=== PATIENT | female | born 1945 | race Caucasian/White ===

== ENCOUNTER 2017-05-13 17:30 | Emergency (ER) | payer MEDICARE, BC ==
[~2017-05-13] VITALS: Ht 160 cm; Wt 86.0 kg
[~2017-05-13 17:30] MED LIST: CYMB30CA PO; ECASA PO; HYDR12.56 PO; HYOS0.1251 PO; LOMO PO; LOSA50TA PO; OMEP20TA39 PO; PSEU1LIQ2 PO; ZOCO40TA PO
[2017-05-13 17:34] VITALS: BP 149/89; PULSE 90; RESP 18; TEMP 98.8; O2SAT 97
[2017-05-13] MEDS ORDERED: OMEP20TA93 PO (18:54)
[2017-05-13] MEDS ORDERED: LIPI20TA PO (18:54)
[2017-05-13] MEDS ORDERED: LOSA50TA2 PO (18:54)
[2017-05-13] MEDS ORDERED: HYDR-3534 PO (18:54)
[2017-05-13] MEDS ORDERED: CYMB30CA PO (18:54)
[2017-05-13] MEDS ORDERED: XARE20TA PO (18:54)
[2017-05-13] MEDS ORDERED: LOMO2.5T PO (18:56)
[2017-05-13] MEDS ORDERED: LEVS0.123 PO (18:56)
[2017-05-13] MEDS ORDERED: SODIUM CHLORIDE 0.9% FLUSH 10 ML FLUSH IV FLUSH PRN (19:00)
[2017-05-13] MEDS ORDERED: KETOROLAC TROMETHAMINE 30 MG/ML (IVP) VIAL IVP ONE (19:00)
[2017-05-13] MEDS ORDERED: SODIUM CHLORID 0.9% 500 ML INJ 500 ML IV ONE (19:00)
[2017-05-13] MEDS ORDERED: ONDANSETRON HCL 4 MG/2 ML VIAL IVP ONE (19:00)
[2017-05-13] MEDS ORDERED: MORPHINE SULFATE 4 MG/ML INJ IV PUSH ONE (19:00)
--- NOTE | 2017-05-13 19:00 | PD ---
HPI Chief Complaint: Abdominal Pain Time Seen by Provider: 18:24 Travel History International Travel<30 days: No Contact w/Intl Traveler<30days: No Traveled to known affect area: No History of Present Illness HPI The patient is a 72-year-old female who presents emergency department for abdominal pain. The patient was eating dinner earlier tonight when she developed sudden right lower quadrant abdominal pain which she described as sharp, radiating to the back, and assisted with mild nausea without any vomiting. She did complain of breaking out in a sweat at the onset of pain. The patient states the pain has subsided somewhat, however, still present. The patient has a history of previous surgeries including cholecystectomy, hysterectomy, and the [place] fundoplication. The patient denies any dysuria, frequency, urgency, or history nephrolithiasis. She denies any associated fever , chills, or sweats. Symptoms are moderate without any alleviating or exacerbating factors. The patient does have a history of IBS, is on treatment for diarrhea-type IBS, last bowel movement 2 days ago, notes intermittent constipation for medications with improved symptoms. The patient has also had multiple colonoscopies in the past for atypical polyps, however, she states her last colonoscopy was unremarkable and she is scheduled for another one in 3 years. PFSH Past Medical History Hx Anticoagulant Therapy: Yes Atrial Fibrillation: Yes Anxiety: No Depression: Yes Cancer: No Cardiovascular Problems: Yes (SPON AFIB) High Cholesterol: Yes Chest Pain: Yes Diminished Hearing: Yes ([facility] both ears has hearing aids not in place at this time) Endocrine: No Gastrointestinal Disorders: Yes (IBS, colitis) GERD: Yes Genitourinary: No Headaches: Yes Hiatal Hernia: Yes Hypertension: Yes Immune Disorder: No Musculoskeletal: Yes Neurologic: Yes Psychiatric: Yes Reproductive: Yes ( endometriosis) Respiratory: No Tetanus Vaccination: > 5 Years Influenza Vaccination: Yes ?: Not Menopausal: Yes Past Surgical History Abdominal Surgery: Yes (niassan surgery- stomach) Cholecystectomy: Yes Eye Surgery: Yes (cataracts both eyes) Hysterectomy: Yes Social History Alcohol Use: Yes (occ ,wine) Tobacco Use: No Substance Use: No Allergies-Medications (Allergen,Severity, Reaction): Coded Allergies: ampicillin (Unverified Allergy, Severe, 05/13/17) procaine (Unverified Allergy, Intermediate, 05/13/17) sumatriptan (Unverified Allergy, Intermediate, 05/13/17) Reported Meds & Prescriptions Reported Meds & Active Scripts Active Reported Levsin (Hyoscyamine Sulfate) 0.125 Mg Tab 0.125 Mg PO Q4H PRN Lomotil (Diphenoxylate-Atropine) 2.5-0.025 Mg Tab 1 Tab PO Q6H PRN Losartan-Hydrochlorothiazide 50-12.5 Mg Tab 1 Tab PO DAILY Omeprazole 20 Mg Tab 20 Mg PO DAILY Lortab (Hydrocodone-Acetaminophen) 7.5-325 Mg Tab 1 Tab PO TID PRN Lipitor (Atorvastatin Calcium) 20 Mg Tab 20 Mg PO DAILY Cymbalta DR (Duloxetine HCl) 30 Mg Capdr 30 Mg PO DAILY Xarelto (Rivaroxaban) 20 Mg Tab 20 Mg PO DAILY Review of Systems Except as stated in HPI: all other systems reviewed are Neg General / Constitutional: No: Fever Cardiovascular: No: Chest Pain or Discomfort Respiratory: No: Shortness of Breath Gastrointestinal: Positive: Nausea, Abdominal Pain, No: Vomiting, Diarrhea Genitourinary: No: Urgency, Frequency, Dysuria, Hematuria Neurologic: No: Dizziness Physical Exam Narrative GENERAL: Awake, alert, pleasant 72-year-old female who appears her stated age and is in no acute respiratory distress. SKIN: Focused skin assessment warm, slightly diaphoretic across the forehead and abdomen.. HEAD: Atraumatic. Normocephalic. EYES: Pupils equal and round. No scleral icterus. No injection or drainage. ENT: No nasal bleeding or discharge. Mucous membranes pink and moist. NECK: Trachea midline. No JVD. CARDIOVASCULAR: Regular rate and rhythm. No murmur appreciated. RESPIRATORY: No accessory muscle use. Clear to auscultation. Breath sounds equal bilaterally. GASTROINTESTINAL: Abdomen soft, tender palpation right lower quadrant. Mild guarding, no rigidity. Back: No CVA tenderness. MUSCULOSKELETAL: No obvious deformities. No clubbing. No cyanosis. No edema. NEUROLOGICAL: Awake and alert. No obvious cranial nerve deficits. Motor grossly within normal limits. Normal speech. PSYCHIATRIC: Appropriate mood and affect; insight and judgment normal. Data Data Last Documented VS Vital Signs Date Time Temp Pulse Resp B/P (MAP) Pulse Ox O2 Delivery O2 Flow Rate FiO2 05/13/17 19:48 96 Room Air 05/13/17 19:47 73 18 05/13/17 17:34 98.8 Orders Orders Complete Blood Count With Diff (05/13/17 18:48) Comprehensive Metabolic Panel (05/13/17 18:48) Lipase (05/13/17 18:48) Lactic Acid (05/13/17 18:48) Urinalysis - C+S If Indicated (05/13/17 18:48) Ct Abd/Pel W/O Iv Contrast (05/13/17 18:48) Iv Access Insert/Monitor (05/13/17 18:48) Ecg Monitoring (05/13/17 18:48) Oximetry (05/13/17 18:48) Morphine Inj (Morphine Inj) (05/13/17 19:00) Ondansetron Inj (Zofran Inj) (05/13/17 19:00) Sodium Chloride 0.9% Flush (Ns Flush) (05/13/17 19:00) Ketorolac Inj (Toradol Inj) (05/13/17 19:00) Sodium Chlorid 0.9% 500 Ml Inj (Ns 500 M (05/13/17 19:00) Urine Culture (05/13/17 20:44) Labs Laboratory Tests Test 05/13/17 19:15 05/13/17 19:55 05/13/17 20:44 White Blood Count 8.6 TH/MM3 Red Blood Count 4.86 MIL/MM3 Hemoglobin 13.9 GM/DL Hematocrit 42.3 % Mean Corpuscular Volume 87.1 FL Mean Corpuscular Hemoglobin 28.7 PG Mean Corpuscular Hemoglobin Concent 33.0 % Red Cell Distribution Width 12.5 % Platelet Count 310 TH/MM3 Mean Platelet Volume 8.9 FL Neutrophils (%) (Auto) 62.0 % Lymphocytes (%) (Auto) 25.4 % Monocytes (%) (Auto) 9.0 % Eosinophils (%) (Auto) 2.9 % Basophils (%) (Auto) 0.7 % Neutrophils # (Auto) 5.3 TH/MM3 Lymphocytes # (Auto) 2.2 TH/MM3 Monocytes # (Auto) 0.8 TH/MM3 Eosinophils # (Auto) 0.2 TH/MM3 Basophils # (Auto) 0.1 TH/MM3 CBC Comment DIFF FINAL Differential Comment Blood Urea Nitrogen 17 MG/DL Creatinine 0.96 MG/DL Random Glucose 101 MG/DL Total Protein 8.0 GM/DL Albumin 3.6 GM/DL Calcium Level 9.1 MG/DL Alkaline Phosphatase 83 U/L Aspartate Amino Transf (AST/SGOT) 13 U/L Alanine Aminotransferase (ALT/SGPT) 20 U/L Total Bilirubin 0.4 MG/DL Sodium Level 140 MEQ/L Potassium Level 3.5 MEQ/L Chloride Level 105 MEQ/L Carbon Dioxide Level 26.7 MEQ/L Anion Gap 8 MEQ/L Estimat Glomerular Filtration Rate 57 ML/MIN Lipase 233 U/L Lactic Acid Level 1.9 mmol/L Urine Color YELLOW Urine Turbidity CLEAR Urine pH 6.0 Urine Specific [place] 1.031 Urine Protein NEG mg/dL Urine Glucose (UA) NEG mg/dL Urine Ketones TRACE mg/dL Urine Occult Blood NEG Urine Nitrite NEG Urine Bilirubin NEG Urine Leukocyte Esterase NEG Urine RBC 0-3 /hpf Urine WBC 6-8 /hpf Urine WBC Clumps FEW Urine Squamous Epithelial Cells 0-5 /hpf Urine Mucus MOD /lpf Microscopic Urinalysis Comment CULTURE INDICATED MDM Medical Decision Making Medical Screen Exam Complete: Yes Emergency Medical Condition: Yes Medical Record Reviewed: Yes Interpretation(s) Laboratory Tests Test 05/13/17 19:15 05/13/17 19:55 05/13/17 20:44 White Blood Count 8.6 TH/MM3 Red Blood Count 4.86 MIL/MM3 Hemoglobin 13.9 GM/DL Hematocrit 42.3 % Mean Corpuscular Volume 87.1 FL Mean Corpuscular Hemoglobin 28.7 PG Mean Corpuscular Hemoglobin Concent 33.0 % Red Cell Distribution Width 12.5 % Platelet Count 310 TH/MM3 Mean Platelet Volume 8.9 FL Neutrophils (%) (Auto) 62.0 % Lymphocytes (%) (Auto) 25.4 % Monocytes (%) (Auto) 9.0 % Eosinophils (%) (Auto) 2.9 % Basophils (%) (Auto) 0.7 % Neutrophils # (Auto) 5.3 TH/MM3 Lymphocytes # (Auto) 2.2 TH/MM3 Monocytes # (Auto) 0.8 TH/MM3 Eosinophils # (Auto) 0.2 TH/MM3 Basophils # (Auto) 0.1 TH/MM3 CBC Comment DIFF FINAL Differential Comment Blood Urea Nitrogen 17 MG/DL Creatinine 0.96 MG/DL Random Glucose 101 MG/DL Total Protein 8.0 GM/DL Albumin 3.6 GM/DL Calcium Level 9.1 MG/DL Alkaline Phosphatase 83 U/L Aspartate Amino Transf (AST/SGOT) 13 U/L Alanine Aminotransferase (ALT/SGPT) 20 U/L Total Bilirubin 0.4 MG/DL Sodium Level 140 MEQ/L Potassium Level 3.5 MEQ/L Chloride Level 105 MEQ/L Carbon Dioxide Level 26.7 MEQ/L Anion Gap 8 MEQ/L Estimat Glomerular Filtration Rate 57 ML/MIN Lipase 233 U/L Lactic Acid Level 1.9 mmol/L Urine Color YELLOW Urine Turbidity CLEAR Urine pH 6.0 Urine Specific [place] 1.031 Urine Protein NEG mg/dL Urine Glucose (UA) NEG mg/dL Urine Ketones TRACE mg/dL Urine Occult Blood NEG Urine Nitrite NEG Urine Bilirubin NEG Urine Leukocyte Esterase NEG Urine RBC 0-3 /hpf Urine WBC 6-8 /hpf Urine WBC Clumps FEW Urine Squamous Epithelial Cells 0-5 /hpf Urine Mucus MOD /lpf Microscopic Urinalysis Comment CULTURE INDICATED CT of the abdomen and pelvis reveals no definite acute findings within the abdomen or pelvis. Differential Diagnosis Differential diagnosis includes nephrolithiasis, appendicitis, perforated viscus , cecal volvulus, retained biliary stone, UTI, pyelonephritis, hydronephrosis. Narrative Course IV was established, labs are drawn and sent, and the patient was placed on cardiac telemetry monitoring and continuous pulse oximetry monitoring. The patient was administered morphine, Toradol, Zofran, and IV fluids. Noncontrast CT of the abdomen and pelvis was ordered. The patient's CBC is unremarkable. LFTs, lipase, and lactic acid are unremarkable. The patient was reevaluated at 8:32 PM. UA reveals WBCs, CT the abdomen and pelvis is negative. Patient may have underlying UTI, most likely her abdominal pain is of different origin, may be bowel gas related. Labs are reassuring. Vitals are reassuring. The patient be discharged home on antibiotics and pain medications. She is advised to follow-up with her primary physician and return if symptoms worsen or progress. Diagnosis Primary Impression: Abdominal pain Qualified Codes: R10.31 - Right lower quadrant pain Additional Impression: UTI (urinary tract infection) Qualified Codes: N30.00 - Acute cystitis without hematuria Patient Instructions: General Instructions Additional Instructions: Please provide the patient a copy of her CT results and lab results at discharge. Medications as directed. Return if symptoms worsen or progress. Follow-up with your primary physician and web content & social media manager. Med/Other Pt SpecificInfo: Prescription(s) given Scripts Sulfamethoxazole-Trimethoprim (Bactrim DS) 800-160 Mg Tab 1 TAB PO BID for Infection, #6 TAB 0 Refills Prov: Torey Mulligan MD 05/13/17 Hydrocodone-Acetaminophen ([place]) 5-325 mg Tab 1 TAB PO Q6H Y for PAIN, #10 TAB 0 Refills Prov: Torey Mulligan MD 05/13/17 Disposition: 01 DISCHARGE HOME Condition: Stable Torey Mulligan MD May 13, 2017 19:00
[2017-05-13 19:47] VITALS: BP 135/78; PULSE 73; RESP 18; O2SAT 96
[2017-05-13 19:48] VITALS: O2SAT 96
[2017-05-13 20:06] LABS: AUTOMATED NEUTROPHIL # 5.3 TH/MM3 (1.8-7.7); BASOPHIL # 0.1 TH/MM3 (0-0.2); BASOPHIL % 0.7 % (0.0-2.0); EOSINOPHIL # 0.2 TH/MM3 (0-0.4); EOSINOPHIL % 2.9 % (0.0-4.0); HEMATOCRIT 42.3 % (35.0-46.0); HEMOGLOBIN 13.9 GM/DL (11.6-15.3); LYMPH % 25.4 % (9.0-44.0); LYMPHOCYTE # 2.2 TH/MM3 (1.0-4.8); MEAN CELL VOLUME 87.1 FL (80.0-100.0); MEAN CORPUSCULAR HEMOGLOBIN 28.7 PG (27.0-34.0); MEAN PLATELET VOLUME 8.9 FL (7.0-11.0); MONOCYTE # 0.8 TH/MM3 (0-0.9); PLATELET COUNT 310 TH/MM3 (150-450); RED BLOOD COUNT 4.86 MIL/MM3 (4.00-5.30); RED CELL DISTRIBUTION WIDTH 12.5 % (11.6-17.2); WHITE BLOOD COUNT 8.6 TH/MM3 (4.0-11.0)
[2017-05-13 20:17] LABS: CHLORIDE 105 MEQ/L (98-107); SODIUM (NA) 140 MEQ/L (136-145)
[2017-05-13 20:20] LABS: CALCIUM 9.1 MG/DL (8.5-10.1)
[2017-05-13 20:21] LABS: ALBUMIN 3.6 GM/DL (3.4-5.0); BICARBONATE 26.7 MEQ/L (21.0-32.0); BLOOD UREA NITROGEN 17 MG/DL (7-18); GLUCOSE,RANDOM 101 MG/DL (74-106); LIPASE 233 U/L (73-393)
[2017-05-13 20:24] LABS: ALT (GPT) 20 U/L (10-53); AST (GOT) 13 U/L (15-37); CREATININE 0.96 MG/DL (0.50-1.00); GLOMERULAR FILTRATION RATE 57 ML/MIN (>89)
[2017-05-13 20:25] LABS: TOTAL BILIRUBIN ADULT 0.4 MG/DL (0.2-1.0)
[2017-05-13 20:27] LABS: ALKALINE PHOSPHATASE 83 U/L (45-117)
[2017-05-13 20:57] LABS: BILIRUBIN, URINE NEG (NEG); BLOOD, URINE NEG (NEG); GLUCOSE,URINE NEG (NEG); KETONE, URINE TRACE mg/dL (NEG); NITRITE,URINE NEG (NEG); URINE LEUKOCYTE ESTERASE NEG (NEG)
[2017-05-13 21:17] LABS: URINE COLOR YELLOW (YELLW/STRAW)
[2017-05-13 21:18] LABS: MUCUS URINE MOD /lpf (OCC); RBC, URINE 0-3 /hpf (0-3); SQUAMOUS EPITHELIAL CELL URINE 0-5 /hpf (0-5); WHITE BLOOD CELL CLUMPS FEW
--- NOTE | 2017-05-13 21:23 | RADRPT ---
EXAM DATE/TIME: 05/13/2017 19:21 [facility] COMPARISON: No previous studies available for comparison. INDICATIONS : Right side abdomen pain. ORAL CONTRAST: No oral contrast ingested. RADIATION DOSE: 21.35 CTDIvol (mGy) MEDICAL HISTORY : Hernia, hiatal. Ulcerative colitis. Gastrointestinal bleed. SURGICAL HISTORY : Cholecystectomy. Hysterectomy.Lilia lap. ENCOUNTER: Initial ACUITY: 1 day PAIN SCALE: 7/10 LOCATION: Right lower quadrant abdomen TECHNIQUE: Volumetric scanning of the abdomen and pelvis was performed. Using automated exposure control and ad justment of the mA and/or kV according to patient size, radiation dose was kept as low as reasonably achievable to obtain optimal diagnostic quality images. DICOM format image data is available electro nically for review and comparison. FINDINGS: LOWER LUNGS: Mild basilar atelectasis. LIVER: Left lobe liver cysts. No suspicious mass. No biliary ductal dilatation. Gallbladder surgically absen t. SPLEEN: Multiple granulomatous calcifications. PANCREAS: Within normal limits. KIDNEYS: Likely parapelvic cysts on the left. No evidence of cortical mass or stone ADRENAL GLANDS: Within normal limits. VASCULAR: There is no aortic aneurysm. BOWEL/MESENTERY: Moderate size hiatal hernia. No abnormal dilatation of bowel. No focal wall thickening or inflammator y changes. ABDOMINAL WALL: Within normal limits. RETROPERITONEUM: There is no lymphadenopathy. BLADDER: No wall thickening or mass. REPRODUCTIVE: Uterus surgically absent. No evidence of pelvic mass or free fluid. INGUINAL: There is no lymphadenopathy or hernia. MUSCULOSKELETAL: Severe scoliosis in the lumbar spine. Degenerative changes. CONCLUSION: No definite acute findings in the abdomen or pelvis. Jw Hurt MD on May 13, 2017 at 21:17 Board Certified Radiologist. This report was verified electronically.
[2017-05-13] MEDS ORDERED: BACT800T5 PO (21:33)
[2017-05-13] MEDS ORDERED: NORC5TAB PO (21:33)
[2017-05-13] MEDS ORDERED: SULFAMETHOXAZOLE-TRIMETHOPRIM DS 800-160 MG TAB PO ONE (21:45)
== END 2017-05-13 21:57 | disposition home or self-care (01) ==
LOC: PHED 17:30
DX: R10.31 Right lower quadrant pain (principal); N30.00 Acute cystitis without hematuria; R11.0 Nausea; Z79.01 Long term (current) use of anticoagulants; I48.91 Unspecified atrial fibrillation; I10 Essential (primary) hypertension
CPT/HCPCS: 74176; 80053; 81001; 83605; 83690; 85025; 87086; 96361; 96374; 96375; 99285; J1885; J2270; J2405; J7040